=== PATIENT | female | born 1955 | race Caucasian/White ===

== ENCOUNTER 2017-08-21 19:15 | Emergency (ER) | payer SELFPAY ==
[2017-08-21] MEDS ORDERED: EPINEPHrine HCL (1:10,000) 1 MG/10 ML SYRINGE IV ONE (19:16)
[2017-08-21] MEDS ORDERED: AMIODARONE HCL 150 MG/3 ML VIAL IV ONE (19:16)
[2017-08-21 19:18] VITALS: BP 162/108; PULSE 0
--- NOTE | 2017-08-21 19:45 | PD ---
HPI Chief Complaint: Code Blue Time Seen by Provider: 19:19 Travel History International Travel<30 days: No Contact w/Intl Traveler<30days: No Traveled to known affect area: No History of Present Illness HPI 61-year-old female was brought in by EMS in full cardiopulmonary arrest. Patient was found at home by her boyfriend unresponsive. Last normal was about 3 minutes before that. EMS was called. Patient was found in PEA. Chest compressions started. I/O access on the right tibia was established. Patient was given epinephrine IO. Patient was found to be hypoglycemic. D10 was given IO. Patient had a short period of V. fib. Patient was defibrillated. Patient was given epinephrine I/O 4 and bicarb 1 amp prior to arrival. Upon arrival patient's in PEA. Patient has history of atrial fibrillation and diabetes. 2005 p.m. Family members inform me that patient has had signed DNR. PFSH Past Medical History ?: Unknown Social History Tobacco Use: No Allergies-Medications (Allergen,Severity, Reaction): Coded Allergies: hyoscyamine (Verified Allergy, Unknown, 08/21/17) methenamine (Verified Allergy, Unknown, 08/21/17) methylene blue (Verified Allergy, Unknown, 08/21/17) sodium phosphate (Verified Allergy, Unknown, 08/21/17) Review of Systems ROS Limitations: Intubated, Unresponsive Physical Exam Narrative GENERAL: Well-nourished, well-developed patient. SKIN: Focused skin assessment warm/dry. HEAD: Normocephalic. EYES: Pupils dilated. Nonreactive. NECK: Supple, trachea midline. No JVD or lymphadenopathy. CARDIOVASCULAR: No cardiac activity. RESPIRATORY: No spontaneous respiration. Breath sounds are equal bilaterally on bagging. GASTROINTESTINAL: Abdomen soft, nondistended. MUSCULOSKELETAL: No cyanosis, or edema. BACK: No obvious deformity. Neurologic exam: Patient is unresponsive and intubated. Data Data Last Documented VS Vital Signs Date Time Temp Pulse Resp B/P (MAP) Pulse Ox O2 Delivery O2 Flow Rate FiO2 08/21/17 19:18 0 162/108 (126) Orders Orders Ed Discharge Order (08/21/17 20:46) MDM Medical Decision Making Medical Screen Exam Complete: Yes Emergency Medical Condition: Yes Differential Diagnosis Differential diagnosis including asystole, PE, PEA, cardiac arrhythmia. Narrative Course 61-year-old female was found unresponsive. Patient was in PEA and V. fib. Patient was defibrillated, chest compressions started, patient was intubated and given IV epinephrine and bicarb and D10 prior to arrival. ACLS protocol continued in the ED. Patient was between PEA and V. fib. Patient was given IV epinephrine, amiodarone, defibrillator defibrillated. Chest compression continued throughout. Patient did not respond. ACLS protocol stopped. I pronounced the patient. 2005 p.m. Family members informed me that patient has a signed DNR. Diagnosis Primary Impression: Cardiopulmonary arrest Additional Impressions: History of diabetes mellitus History of atrial fibrillation Disposition: 20 Condition: Hugo Estrada MD Aug 21, 2017 19:45
== END 2017-08-22 03:45 | disposition expired ==
LOC: NEPE 19:15 → NEPI 08-22 03:45
DX: I46.9 Cardiac arrest, cause unspecified (principal)
CPT/HCPCS: 92950; J0171; J0282